=== PATIENT | female | born 1985 | race Asian ===

== ENCOUNTER 2017-03-20 07:05 | Inpatient (IN) | payer BC ==
[2017-03-20 08:50] VITALS: BMI 32.1
[2017-03-20] MEDS ORDERED: CITRIC ACID/SODIUM CITRATE 30 ML UNIT-DOSE CUP PO ONE (10:30)
[2017-03-20] MEDS ORDERED: ELECTROLYTE-148 SOLN 1,000 ML IV SCH (10:45)
[2017-03-20] MEDS: OXYTOCIN 20 UNITS in 0.9% NS 1,000 ML IV SCH ×3 (11:02→12:47)
[2017-03-20] MEDS ORDERED: ONDANSETRON 4 MG/2 ML VIAL IVPB PRN (11:13)
[2017-03-20] MEDS ORDERED: ACETAMINOPHEN 1000 MG/100 ML VIAL (NON FORMULARY) IVPB PRN (11:15)
[2017-03-20] MEDS ORDERED: BENZOCAINE 28 GM HEMORRHOIDAL OINTMENT PR PRN (11:31)
[2017-03-20] MEDS ORDERED: BENZOCAINE 20% 57 GM BOTTLE TP PRN (11:31)
[2017-03-20] MEDS ORDERED: diphenhydrAMINE HCL 25 MG CAPSULE (FP) PO PRN (11:31)
[2017-03-20] MEDS ORDERED: oxyCODONE HCL 5 MG TABLET PO PRN (11:31)
[2017-03-20] MEDS ORDERED: WITCH HAZEL 50% (TUCKS) 40 PAD/JAR PAD TP PRN (11:31)
[2017-03-20] MEDS ORDERED: IBUPROFEN 800 MG/8 ML IJ IVPB PRN (11:31)
[2017-03-20] MEDS ORDERED: METHYLERGONOVINE MALEATE 0.2 MG/1 ML AMP IM PRN (11:31)
[2017-03-20] MEDS ORDERED: CEFAZOLIN (PRE-DOCKED) 50 ML IVPB ONE (17:24)
[2017-03-20] MEDS: CEFAZOLIN 1 GM/D5W 50 ML IVPB SCH (17:26)
--- NOTE | 2017-03-20 19:30 | OP ---
DATE OF OPERATION: 03/20/2017 PREOPERATIVE DIAGNOSIS: , 38.5 weeks' gestation, oblique lie and cervical dilation. Previous section. POSTOPERATIVE DIAGNOSIS: , 38.5 weeks' gestation, oblique lie and cervical dilation. Previous section. PROCEDURE: Repeat low segment transverse section. SURGEON: Caleb Hunt M.D. BAG FILLER MACHINE OPERATOR: ANESTHESIA: Spinal. ANESTHESIOLOGIST: Carmen Norton M.D. ESTIMATED BLOOD LOSS: 500 mL. OPERATION: Patient was taken to operating room with adequate epidural anesthesia. Abdomen and perineum were prepped and draped. Pfannenstiel abdominal skin incision was made. Abdominal wall was cut layer by layer until the peritoneum was exposed and incised. Upon entering the abdominal cavity, the lower uterine segment was identified, and uterovesical fold of the peritoneum was established. The bladder was pushed down. Then with the lower blade of the Tara retractor in the pelvis, a low transverse uterine incision was made. The incision extended laterally. Amniotic sac was entered. Clear fluid. Head was to the right of the pelvic side wall, oblique, which was delivered at the vertex. A live baby boy was delivered. Placenta was delivered manually. Uterine cavity was cleared of all remaining tissue. Uterine incision was closed in 2 layers, the 1st layer with 0 Biosyn continuous suture, the 2nd layer with 0 Biosyn imbricating the 1st layer. Bladder flap was closed with 0 Biosyn continuous suture. Both tubes and ovaries were checked and were normal. No active bleeding was seen. All the lap, sponge, and instrument counts were correct. Peritoneum was closed with 0 Biosyn continuous suture. Muscles were brought together interrupted suture with 0 Biosyn. Fascia was closed with 0 Biosyn continuous sutures. Subcutaneous fat interrupted sutures 0 Biosyn, and the skin was closed with 4-0 Biosyn subcuticular continuous suture. The patient tolerated the procedure well and left the OR in good condition. CALEB HUNT M.D. [id number]
[2017-03-20] MEDS: DEXTROSE 5%-LACTATED RINGERS 1,000 ML IV SCH (21:20)
[2017-03-21] MEDS ORDERED: CEFAZOLIN (PRE-DOCKED) 50 ML IVPB ONE (01:56)
[2017-03-21] MEDS: CEFAZOLIN 1 GM/D5W 50 ML IVPB SCH (02:00)
[2017-03-21] MEDS ORDERED: IBUPROFEN 800 MG/8 ML IJ IVPB PRN (05:58)
--- NOTE | 2017-03-21 08:02 | PN ---
Progress Note (short form) - Note Progress Note: Post op day#1.S/P C section under spinal anesthesia with duramorph uneventful.Patient stable and has little pain for which she is on medication.No any anesthesia related problem.Patient DC from the anesthesia care.
[2017-03-21] MEDS: ENOXAPARIN NA (PORCINE) 40 MG/0.4 ML DISP.SYRIN SQ SCH (09:06)
[2017-03-21] MEDS: PRENATAL VITAMINS W/ FOLIC ACID TABLET (FP) PO SCH (09:06)
[2017-03-21 09:15] LABS: BASOPHIL 0.2 % (0-2.0); EOSINOPHIL 0.8 % (0-4.5); MCHC 33.4 g/dl (32.0-36.0); MEAN CELL VOLUME 80.6 fl (80-96); MEAN PLT VOLUME 7.9 fl (7.5-11.1); NEUTROPHILS 70.8 % (42.8-82.8); PLATELET COUNT 229 K/MM3 (134-434); RDW 13.3 % (11.6-15.6); WHITE BLOOD COUNT 15.7 K/mm3 (4.0-10.0)
--- NOTE | 2017-03-21 09:27 | PN ---
Post Progress Note - Subjective Subjective: Patient without acute complaints. Reports tolerating oral intake without nausea or vomiting. Ambulating without dizziness. Denies fevers or chills. Pain well controlled with oral pain medication. Desires to breastfeed. Type of Delivery: Repeat C/S Vital Signs: Vital Signs Temperature 98 F 03/21/17 08:18 Pulse Rate 77 03/21/17 08:18 Respiratory Rate 20 03/21/17 08:18 Blood Pressure 95/60 03/21/17 08:18 O2 Sat by Pulse Oximetry (%) 99 03/20/17 12:30 Breast Exam: Yes: Soft Uterus: Yes: Fundus Firm, Fundus below umbilicus Incision: Yes: Dressing dry and intact Abdomen/GI: Yes: Abdomen soft. No: Tender Extremities: Yes: Calves non-tender. No: Edema - Labs Labs: CBC WBC 15.7 K/mm3 (4.0-10.0) H 03/21/17 08:00 RBC 4.03 M/mm3 (3.60-5.2) 03/21/17 08:00 Hgb 10.9 GM/dL (10.7-15.3) D 03/21/17 08:00 Hct 32.5 % (32.4-45.2) 03/21/17 08:00 MCV 80.6 fl (80-96) 03/21/17 08:00 MCHC 33.4 g/dl (32.0-36.0) 03/21/17 08:00 RDW 13.3 % (11.6-15.6) 03/21/17 08:00 Plt Count 229 K/MM3 (134-434) 03/21/17 08:00 MPV 7.9 fl (7.5-11.1) 03/21/17 08:00 Neutrophils % 70.8 % (42.8-82.8) 03/21/17 08:00 Lymphocytes % 19.6 % (8-40) 03/21/17 08:00 Monocytes % 8.6 % (3.8-10.2) 03/21/17 08:00 Eosinophils % 0.8 % (0-4.5) 03/21/17 08:00 Basophils % 0.2 % (0-2.0) 03/21/17 08:00 Assessment/Plan 31 yo POD # 1 s/p repeat CD, doing well 1. Continue routine postoperative care. 2. AM CBC without anemia 3. Rh positive, no rhogam indicated 4. Encourage ambulation and incentive spirometer use 5. Continue oral pain medication 6. Anticipate discharge home postoperative day #3 or #4
[2017-03-21] MEDS: oxyCODONE HCL 5 MG TABLET PO PRN ×3 (11:21→20:20)
[2017-03-21] MEDS: SIMETHICONE 80 MG TAB.CHEW (FP) PO PRN ×3 (11:21→20:20)
[2017-03-21] MEDS: IBUPROFEN 600 MG TABLET (FP) PO PRN ×3 (11:21→20:20)
[2017-03-21] MEDS ORDERED: BISACODYL 10 MG SUPP.RECT RC PRN (11:33)
[2017-03-22] MEDS: SIMETHICONE 80 MG TAB.CHEW (FP) PO PRN ×4 (06:22→21:38)
[2017-03-22] MEDS: oxyCODONE HCL 5 MG TABLET PO PRN ×3 (06:23→22:09)
[2017-03-22] MEDS: IBUPROFEN 600 MG TABLET (FP) PO PRN ×4 (06:23→21:38)
--- NOTE | 2017-03-22 08:01 | PN ---
Progress Note (short form) - Note Progress Note: pod 2 doing well, ambulating, passing gas CBC, BMP 03/21/17 08:00 Last Vital Signs Temp Pulse Resp BP Pulse Ox 97.5 F L 79 18 112/54 99 03/21/17 20:37 03/21/17 20:37 03/21/17 20:37 03/21/17 20:37 03/20/17 12:30 Current Medications Generic Name Dose Route Start Last Admin Trade Name Freq PRN Reason Stop Dose Admin Benzocaine 1 applic 03/20/17 11:31 Americaine Ointment - MO PRN PRN PAIN Benzocaine 1 spray 03/20/17 11:31 Americaine 20% [place] - TP PRN PRN PAIN Bisacodyl 10 mg 03/21/17 11:33 Dulcolax Suppository - RC PRN PRN CONSTIPATION Diphenhydramine HCl 25 mg 03/20/17 11:13 03/20/17 21:20 Benadryl Injection - IVPUSH 25 mg Q4H PRN Administration Pruritis Diphenhydramine HCl 25 mg 03/20/17 11:31 03/21/17 20:19 Benadryl - PO 25 mg Q8H PRN Administration FOR ITCHING Enoxaparin Sodium 40 mg 03/21/17 10:00 03/21/17 09:06 Lovenox - SQ 40 mg DAILY STACI Administration Dextrose/Lactated Ringer's 1,000 mls @ 125 mls/hr 03/20/17 11:45 03/20/17 21:20 D5-Lr - IV 125 mls/hr ASDIR STACI Administration Ibuprofen 600 mg 03/20/17 11:31 03/22/17 06:23 Motrin - PO 600 mg Q4H PRN Administration PAIN Methylergonovine Maleate 0.2 mg 03/20/17 11:31 Methergine Injection - IM Q4H PRN EXCESSIVE BLEEDING Oxycodone HCl 5 mg 03/20/17 11:31 03/22/17 06:23 Roxicodone - PO 5 mg Q4H PRN Administration PAIN LEVEL 1-5 Oxycodone HCl 10 mg 03/20/17 11:31 Roxicodone - PO Q4H PRN PAIN LEVEL 6-10 Multivit/Folic Acid/Iron 1 tab 03/21/17 10:00 03/21/17 09:06 Vitamins (Sjr) - PO 1 tab DAILY STACI Administration Senna/Docusate Sodium 1 tablet 03/22/17 22:00 Pericolace - PO HS PRN CONSTIPATION Simethicone 80 mg 03/20/17 11:31 03/22/17 06:22 Mylicon - PO 80 mg Q4H PRN Administration GAS Witch Amparo/Glycerin 1 pad 03/20/17 11:31 Tucks Pads - TP PRN PRN PAIN abdomen soft, no distension, no cva, incision dry, clean no calf tenderness no excess vaginal bleeding plan ambulate cbc in am
--- NOTE | 2017-03-22 08:07 | HP ---
Past Medical History - Primary Care Physician PCP:: Caleb Hunt - Admission Chief Complaint: 38,6 weeks, oblique lie, early labor History of Present Illness: 31 yo f with 2 previous c/s , cx 2 cm, 75 , head to rt side of pelvis , admitted for repeat c/s , in view of oblique lie and cervical dilation History Source: Patient Limitations to Obtaining History: No Limitations - Past Medical History ...: 3 ...Para: 2 ...Term: 2 ...: 0 ...Spon : 0 ...Induced : 0 ...Multiple Gestation: 0 ...LMP: 06/23/16 ...EDC by Sono: 03/30/17 - Past Surgical History Past Surgical History: Yes: Hx Myomectomy: No Hx Transabdominal Cerclage: No - Smoking History Smoking history: Never smoked Have you smoked in the past 12 months: No - Alcohol/Substance Use Hx Alcohol Use: No - Social History Usual Living Arrangement: Yes: With Spouse History of Recent Travel: No Home Medications - Allergies Allergies/Adverse Reactions: Allergies Allergy/AdvReac Type Severity Reaction Status Date / Time No Known Allergies Allergy Verified 03/20/17 08:34 - Home Medications Home Medications: Ambulatory Orders Vit No.130/Iron/FA [ Vitamins] 1 each PO DAILY 03/20/17 Review of Systems - Review of Systems Constitutional: reports: No Symptoms Eyes: reports: No Symptoms HENT: reports: No Symptoms Neck: reports: No Symptoms Cardiovascular: reports: No Symptoms Respiratory: reports: No Symptoms Gastrointestinal: reports: No Symptoms Genitourinary: reports: No Symptoms Integumentary: reports: No Symptoms Neurological: reports: No Symptoms Endocrine: reports: No Symptoms Hematology/Lymphatic: reports: No Symptoms Psychiatric: reports: No Symptoms Physical Exam - Maternity Vital Signs: Vital Signs Temperature 97.5 F L 03/21/17 20:37 Pulse Rate 79 03/21/17 20:37 Respiratory Rate 18 03/21/17 20:37 Blood Pressure 112/54 03/21/17 20:37 O2 Sat by Pulse Oximetry (%) 99 03/20/17 12:30 - Abdominal Exam/OB Fundal Height: 38 Number of Fetuses: Single Contractions: Yes Regularity: Irregular Monitor Mode: External Heart Rate Location: [facility] Category: I Accelerations: Uniform Decelerations: None - Vaginal Exam/OB Vaginal Bleediing: No Speculum Exam: No Dilatation (cm): 2 cm Effacement (%): 75 Amniotic Membrane Status: Bulging Presentation: Vertex/Position Station: -4 - Physical Exam Musculoskeletal: Yes: WNL Extremities: Yes: WNL Edema: Yes Edema: LLE: Trace, RLE: Trace Psychiatric: Yes: Alert - Labs Lab Results: CBC, BMP 03/21/17 08:00 Hemorrhage Risk Assessment - Risk Factors Risk Score: 2 Risk Level: High Risk Assessment/Plan 38 weeks, previous c/s, request of c/s. oblique lie. early labor plan repeat c/s,
[2017-03-22] MEDS: PRENATAL VITAMINS W/ FOLIC ACID TABLET (FP) PO SCH (09:30)
[2017-03-22] MEDS: ENOXAPARIN NA (PORCINE) 40 MG/0.4 ML DISP.SYRIN SQ SCH (09:30)
[2017-03-22] MEDS: DEXTROSE 5%-LACTATED RINGERS 1,000 ML IV SCH (19:48)
[2017-03-22] MEDS ORDERED: SENNOSIDES/DOCUSATE COMBO (SENNA PLUS) TABLET (UD) PO PRN (22:00)
[2017-03-22] MEDS: ACETAMINOPHEN 325 MG TABLET (FP) PO PRN (22:09)
[2017-03-23] MEDS: ACETAMINOPHEN 325 MG TABLET (FP) PO PRN (07:56)
[2017-03-23] MEDS: SIMETHICONE 80 MG TAB.CHEW (FP) PO PRN (07:57)
[2017-03-23] MEDS: oxyCODONE HCL 5 MG TABLET PO PRN (08:01)
[2017-03-23 08:57] VITALS: BP 129/83; PULSE 76; TEMP 97.7
[2017-03-23 09:06] LABS: BASOPHIL 0.3 % (0-2.0); MCH 27.2 pg (25.7-33.7); MCHC 33.9 g/dl (32.0-36.0); MEAN CELL VOLUME 80.3 fl (80-96); MEAN PLT VOLUME 7.9 fl (7.5-11.1); NEUTROPHILS 75.6 % (42.8-82.8); PLATELET COUNT 251 K/MM3 (134-434); RDW 13.5 % (11.6-15.6); WHITE BLOOD COUNT 12.9 K/mm3 (4.0-10.0)
[2017-03-23] MEDS: PRENATAL VITAMINS W/ FOLIC ACID TABLET (FP) PO SCH (09:58)
[2017-03-23] MEDS: ENOXAPARIN NA (PORCINE) 40 MG/0.4 ML DISP.SYRIN SQ SCH (09:58)
--- NOTE | 2017-03-23 10:05 | PN ---
Post Progress Note - Subjective Subjective: Patient without acute complaints. Reports tolerating oral intake without nausea or vomiting. Ambulating without dizziness. Denies fevers or chills. Pain well controlled with oral pain medication. with supplementation Passing flatus. Post Day: 3 Type of Delivery: Repeat C/S Vital Signs: Vital Signs Temperature 97.7 F 03/23/17 08:55 Pulse Rate 76 03/23/17 08:55 Respiratory Rate 20 03/23/17 08:55 Blood Pressure 129/83 03/23/17 08:55 O2 Sat by Pulse Oximetry (%) 99 03/20/17 12:30 Breast Exam: Yes: Engorged Uterus: Yes: Fundus Firm, Fundus below umbilicus Incision: Yes: Sutures intact. No: Redness, Oozing Abdomen/GI: Yes: Abdomen soft, Passing flatus, Tolerating PO. No: Tender Lochia: Yes: Serosa Lochia, amount: Small Extremities: Yes: Calves non-tender. No: Edema Activity: Ambulating - Labs Labs: CBC WBC 12.9 K/mm3 (4.0-10.0) H 03/23/17 08:00 RBC 4.10 M/mm3 (3.60-5.2) 03/23/17 08:00 Hgb 11.2 GM/dL (10.7-15.3) 03/23/17 08:00 Hct 32.9 % (32.4-45.2) 03/23/17 08:00 MCV 80.3 fl (80-96) 03/23/17 08:00 MCHC 33.9 g/dl (32.0-36.0) 03/23/17 08:00 RDW 13.5 % (11.6-15.6) 03/23/17 08:00 Plt Count 251 K/MM3 (134-434) 03/23/17 08:00 MPV 7.9 fl (7.5-11.1) 03/23/17 08:00 Neutrophils % 75.6 % (42.8-82.8) 03/23/17 08:00 Lymphocytes % 17.0 % (8-40) 03/23/17 08:00 Monocytes % 5.1 % (3.8-10.2) 03/23/17 08:00 Eosinophils % 2.0 % (0-4.5) D 03/23/17 08:00 Basophils % 0.3 % (0-2.0) 03/23/17 08:00 Assessment/Plan 31 yo POD # 3 s/p repeat CD, doing well 1. Patient stable for discharge home today. 2. Patient encouraged to contact MD for: - Severe pain not controlled by oral pain medication - Fevers or chills - Nausea or vomiting, intolerance of oral intake - Incision redness, tenderness or discharge 3. Patient to follow up in office in 1-2 weeks for incision check, 4-6 weeks for visit
--- NOTE | 2017-03-27 13:22 | PATH ---
Surgical Pathology Report Patient Name: CRISTOFER MARQUIS [facility]. Rec. #: [id number] /Age/Gender: 1985 (Age: 31) / F Account: [id number] Location: [facility] OBS/ENDOSCOPY TECH Taken: 03/20/2017 Received: 03/21/2017 Reported: 03/27/2017 Physicians: Caleb Hunt M.D. Specimen(s) Received PLACENTA Clinical History , 38.5 weeks, oblique lie, c/section x2 Repeat c/section Final Diagnosis PLACENTA, DELIVERY: FOCALLY DISRUPTED THIRD TRIMESTER PLACENTA WITH MODERATE PREVILLOUS, PERIVILLOUS, AND PRECHORIONIC FIBRIN DEPOSITION, THREE VESSEL UMBILICAL CORD, AND UNREMARKABLE PLACENTAL MEMBRANES. Electronically Signed Lito Bruno M.D. Gross Description The specimen is received fresh, labeled "placenta" and is a 541 gram, 19.5 x 14.0 x 2.8 cm placenta with attached membranes and umbilical cord. The attached membranes are willis, translucent with focal opacities and insert marginally. The umbilical cord measures 35 cm in length and averages 1.1 cm in diameter. The cord inserts eccentrically, 5 cm to the nearest margin. No true knots or strictures are identified. Cut surface of the umbilical cord reveals 3 vessels. The surface is riddle-blue with fibrin deposition and appropriate caliber vessels. The maternal surface is red-brown with focal defects. Sectioning reveals red-brown, spongy parenchyma. No focal lesions are identified. Key Carrier sections are submitted in three cassettes as follows: 1- membrane rolls and umbilical cord; 2-3- full thickness sections of placenta. 03/26/2017 [facility]03/26/2017
--- NOTE | 2017-03-28 20:05 | OP ---
DATE OF OPERATION: 03/22/2017 PREOPERATIVE DIAGNOSIS: at 38.6 gestation, oblique lie, early labor and previous section. POSTOPERATIVE DIAGNOSIS: at 38.6 gestation, oblique lie, early labor and previous section. PROCEDURE: Repeat low segment transverse section. SURGEON: Carmen Hunt MD COUNTY HOME DEMONSTRATOR: SHABNAM CHANEY MD ANESTHESIA: Spinal. ESTIMATED BLOOD LOSS: 500 mL. PROCEDURE: The patient was taken to the operating room and after adequate spinal anesthesia, abdomen and perineum were prepped and draped. Pfannenstiel abdominal skin incision was made. Abdomen was cut layer by layer until peritoneum was exposed and incised. Upon entering abdominal cavity, lower uterine segment was identified and uterovesical fold of peritoneum established. Bladder was pushed down. Then, with the lower blade of the Tara retractor in the pelvis, a low transverse incision was made. The incision extended laterally. Amniotic sac was entered. Clear fluid had delivered. Nasopharynx was suctioned and live baby was delivered. Placenta was delivered manually. Uterine cavity was cleared of all remaining tissue. Uterine incision was closed in 2 layers, first layer of 0 Biosyn continuous suture. The second layer was 0 Biosyn imbricating the first layer. Bladder flap was closed with 0 Biosyn continuous suture. Both tubes and ovaries were checked and were normal. No active bleeding was seen. All the lap pad count, sponge count, and instrument counts were correct. Peritoneum was closed with 0 Biosyn continuous suture. Muscle was brought together with interrupted suture of 0 Biosyn. Fascia was closed with 0 Biosyn continuous suture. Subcutaneous fat closed with interrupted suture of 0 Biosyn and the skin was closed with 4-0 Biosyn subcuticular suture. The patient tolerated the procedure well and left the OR in good condition. CARMEN HUNT M.D. [id number]
--- NOTE | 2017-04-22 14:23 | DS ---
Physical Exam-DEVELOPMENTAL TRAINING COUNSELOR Vital Signs: Vital Signs Temperature 97.7 F 03/23/17 08:55 Pulse Rate 76 03/23/17 08:55 Respiratory Rate 20 03/23/17 08:55 Blood Pressure 129/83 03/23/17 08:55 O2 Sat by Pulse Oximetry (%) 99 03/20/17 12:30 Constitutional: Yes: Well Nourished, No Distress, Calm Eyes: Yes: WNL, Conjunctiva Clear, EOM Intact HENT: Yes: WNL, Atraumatic, Normocephalic Neck: Yes: WNL, Supple, Trachea Midline Cardiovascular: Yes: WNL, Regular Rate and Rhythm Respiratory: Yes: WNL, Regular, CTA Bilaterally Gastrointestinal: Yes: WNL ...Rectal Exam: Yes: WNL Renal/: Yes: WNL Internal Exam Deferred: No Vaginal Exam: Yes: Normal ....Post : Yes: Uterus firm, Uterus non-tender, Slight lochia rubra Breast(s): Yes: WNL Musculoskeletal: Yes: WNL Extremities: Yes: WNL Integumentary: Yes: WNL Wound/Incision: Yes: Clean/Dry, Well Approximated, Sutures Intact Neurological: Yes: WNL, Alert, Oriented ...Motor Strength: WNL Psychiatric: Yes: WNL, Alert, Oriented Labs: CBC, BMP 03/23/17 08:00 Delivery - Delivery Section: Repeat, Low Flap Transverse (oblique lie, no complication) Type of Anesthesia: Spinal Episiotomy/Laceration: None EBL (cc): 500 Delivery, Single - Stages of Labor Date of Delivery: 03/20/17 Time of Delivery: 11:01 Time Placenta Delivered: 11:02 Placenta: Yes: Manual Removal - Condition of Ginner Helper/Print Buyer Present: Yes Name: Yoseph Lutz Infant Gender: Male Weight: 7 lb 13 oz Total Hours ROM (Hrs/Mins): 2M - 1 Minute Total Score: 9 5 Minutes Total Score: 9 - [place] Feeding Plan Initial Plan: Elected not to breastfeed exclusively throughout hospitalization Discharge Summary Reason For Visit: C/SECTION Procedures: Principal: repeat c/s Hospital Course: uneventful Condition: Good - Instructions Diet, Activity, Other Instructions: Physical activity Resume your normal everyday activity as tolerated no heavy lifting or exercise until seen by your surgeon. You may walk unlimited pino of and climb stairs. You may resume driving the car when you feel safe and comfortable behind the wheel. No sexual activity as instructed. Wound care If you have a bandage, leave it on, and keep dry for 48-72 hours. After that time discard the outer bandage. If they are tapes on the skin under the out of bandage leave them in place. They will peel off in the next 7 to 10 days. Do Not Peel them off. You may shower the day after surgery. If there are tapes present on the skin, you may shower over them. Diet There are no dietary restrictions. Eat healthy, high-fiber foods. Drink 6 to 8 glasses of liquid each day. This will assist in keeping your bowels are regular. Pain management You may take Tylenol or acetaminophen or Ibuprofen (for example, Motrin, Advil etc.) from my pain prescription medication is ordered should be taken as prescribed for moderate to severe pain. Call MD for any of the following: Severe pain not relieved by medication Fever of 101 or higher Excessive bleeding or drainage on dressing Inability to urinate Reference #: [id number] Referrals: Harriet Tomas MD [Staff Physician] - Caleb Hunt MD [Staff Physician] - Disposition: HOME - Home Medications Comprehensive Discharge Medication List: Ambulatory Orders Vit No.130/Iron/FA [ Vitamins] 1 each PO DAILY 03/20/17 Docusate Sodium [Colace -] 100 mg PO BID PRN #14 capsule 03/23/17 Ibuprofen [Motrin -] 600 mg PO QID #60 tablet 03/23/17 Oxycodone HCl/Acetaminophen [Percocet 5-325 mg Tablet -] 1 - 2 tab PO Q6H #20 tab MDD 6 03/23/17 Simethicone 80 mg PO BID PRN #20 tab.chew 03/23/17
== END 2017-03-23 12:00 | disposition home or self-care (01) | DRG 766 ==
LOC: JLDR 07:05 → J3W 12:55
PROVIDERS: ADMIT Obstetrics & Gynecology; ATTEND Obstetrics & Gynecology
PROC: 10D00Z1 Extraction of Products of Conception, Low, Open Approach (ICD-10-PCS; principal; 2017-03-20)
DX: O32.2XX0 Maternal care for transverse and oblique lie, not applicable or unspecified (principal); O34.211 Maternal care for low transverse scar from previous cesarean delivery; O62.0 Primary inadequate contractions; Z3A.38 38 weeks gestation of pregnancy; Z37.0 Single live birth
CPT/HCPCS: 36415; 71020-TC; 85025; 88307-TC

== ENCOUNTER 2022-05-20 00:15 | Inpatient (IN) | payer BC, OTHER ==
[2022-05-20] MEDS ORDERED: ELECTROLYTE-148 SOLN 500 ML IV ONE ×2 (00:30→01:27)
[2022-05-20] MEDS ORDERED: CITRIC ACID/SODIUM CITRATE 30 ML UNIT-DOSE CUP PO ONE ×2 (00:30→01:27)
[2022-05-20] MEDS ORDERED: ELECTROLYTE-148 SOLN 1,000 ML IV SCH ×2 (01:00→01:30)
[2022-05-20 01:59] VITALS: BMI 32.7
[2022-05-20] MEDS ORDERED: morphine SULFATE/PF 1 MG/2 ML (2cc Syringe - QUVA) ONE (08:11)
[2022-05-20] MEDS ORDERED: KETOROLAC TROMETHAMINE 30 MG/1 ML VIAL ONE (08:47)
[2022-05-20] MEDS ORDERED: PHENYLEPHRINE HCL 10 MG/1 ML SINGLE DOSE VIAL ONE (08:47)
[2022-05-20] MEDS ORDERED: ceFAZolin SODIUM 1 GM VIAL ONE (08:47)
[2022-05-20] MEDS ORDERED: OXYTOCIN 10 UNITS/ML VIAL ONE (08:47)
[2022-05-20] MEDS ORDERED: ONDANSETRON 4 MG/2 ML VIAL ONE (08:47)
[2022-05-20 09:41] LABS: CORD BASE EXCESS -2.8 mmol/L (0-2); CORD HCO3 23.5 mmHg (20-29); CORD PCO2 46.6 mmHg (30-78); CORD pH 7.321 (7.14-7.44)
[2022-05-20 09:44] LABS: CORD HCO3 27.3 mmHg (20-29); CORD PCO2 60.2 mmHg (30-78); CORD pH 7.274 (7.14-7.44)
[2022-05-20] MEDS ORDERED: METHYLERGONOVINE MALEATE 0.2 MG/1 ML AMP IM PRN (09:50)
[2022-05-20] MEDS: OXYTOCIN 20 UNITS in 0.9% NS 20 UNIT/1,000 ML INFUS.BAG IV SCH ×2 (10:05→21:00)
[2022-05-20] MEDS: IBUPROFEN 800 MG/8 ML IJ IVPB PRN (15:54)
[2022-05-20] MEDS ORDERED: oxyCODONE HCL 5 MG TABLET PO PRN (21:50)
[2022-05-21] MEDS: SIMETHICONE 80 MG TAB.CHEW (FP) PO PRN ×4 (04:04→22:17)
[2022-05-21] MEDS: IBUPROFEN 800 MG/8 ML IJ IVPB PRN (04:05)
[2022-05-21 09:11] LABS: BASO % 0.3 % (0-2.0); EOS % 1.3 % (0-4.5); HEMATOCRIT 37.8 % (32.4-45.2); HEMOGLOBIN 12.9 GM/dL (10.7-15.3); LYMPH % 12.7 % (8-40); MCH 28.4 pg (25.7-33.7); MEAN CELL VOLUME 83.5 fl (80-96); MEAN PLT VOLUME 7.6 fl (7.5-11.1); MONO % 4.7 % (3.8-10.2); PLATELET COUNT 215 10^3/uL (134-434); RBC 4.53 M/mm3 (3.60-5.2); RDW 14.2 % (11.6-15.6); WHITE BLOOD COUNT 11.8 K/mm3 (4.0-10.0)
[2022-05-21] MEDS: oxyCODONE HCL 5 MG TABLET PO PRN (13:33)
[2022-05-21] MEDS: BISACODYL 10 MG SUPP.RECT RC PRN (17:47)
[2022-05-21] MEDS: ACETAMINOPHEN 325 MG TABLET (FP) PO PRN (17:48)
[2022-05-21] MEDS: IBUPROFEN 600 MG TABLET (FP) PO PRN (22:17)
[2022-05-21] MEDS: SENNOSIDES/DOCUSATE COMBO (SENNA PLUS) TABLET (UD) PO PRN (22:17)
[2022-05-22] MEDS: ACETAMINOPHEN 325 MG TABLET (FP) PO PRN ×3 (07:20→20:56)
[2022-05-22] MEDS: SIMETHICONE 80 MG TAB.CHEW (FP) PO PRN ×4 (07:20→20:56)
[2022-05-22] MEDS: IBUPROFEN 600 MG TABLET (FP) PO PRN ×2 (11:22→16:57)
[2022-05-22] MEDS: BISACODYL 10 MG SUPP.RECT RC PRN (11:23)
[2022-05-22] MEDS: SENNOSIDES/DOCUSATE COMBO (SENNA PLUS) TABLET (UD) PO PRN (20:56)
[2022-05-23] MEDS: IBUPROFEN 600 MG TABLET (FP) PO PRN (04:11)
[2022-05-23] MEDS: SIMETHICONE 80 MG TAB.CHEW (FP) PO PRN ×2 (04:11→11:01)
[2022-05-23 08:35] VITALS: BP 129/73; PULSE 68; RESP 20; TEMP 97.7
[2022-05-23 08:43] LABS: BASO % 0.3 % (0-2.0); EOS % 5.1 % (0-4.5); HEMATOCRIT 35.1 % (32.4-45.2); HEMOGLOBIN 12.3 GM/dL (10.7-15.3); MCH 29.5 pg (25.7-33.7); MCHC 35.1 g/dl (32.0-36.0); MEAN PLT VOLUME 7.9 fl (7.5-11.1); MONO % 7.8 % (3.8-10.2); NEUT % 65.8 % (42.8-82.8); PLATELET COUNT 233 10^3/uL (134-434); RBC 4.18 M/mm3 (3.60-5.2); WHITE BLOOD COUNT 9.5 K/mm3 (4.0-10.0)
[2022-05-23] MEDS: oxyCODONE HCL 5 MG TABLET PO PRN (11:01)
== END 2022-05-23 12:30 | disposition home or self-care (01) | DRG 785 ==
LOC: JLDR 00:15 → J3W 12:00
PROVIDERS: ADMIT Obstetrics & Gynecology; ATTEND Obstetrics & Gynecology
PROC: 10D00Z1 Extraction of Products of Conception, Low, Open Approach (ICD-10-PCS; principal; 2022-05-20)
PROC: 0UB70ZZ Excision of Bilateral Fallopian Tubes, Open Approach (ICD-10-PCS; 2022-05-20)
DX: O34.218 Maternal care for other type scar from previous cesarean delivery (principal); Z3A.39 39 weeks gestation of pregnancy; Z37.0 Single live birth; Z30.2 Encounter for sterilization
CPT/HCPCS: 36415; 36600; 82803; 85025; 88302-TC; 88307-TC; C9803-CS; U0003; U0005